=== PATIENT | female | born 1980 | race Caucasian/White ===

== ENCOUNTER 2018-03-20 01:27 | Emergency (ER) | payer BC ==
[2018-03-20] MEDS ORDERED: Alum Hydrox/Mag Hydrox/Simeth 15 ML, Metoclopramide 5 MG, Lidocaine 2% 5 ML PO ONE ×3 (01:43)
--- NOTE | 2018-03-20 02:01 | EDM.PDOC ---
ED HPI GENERAL MEDICAL PROBLEM - General Chief Complaint: Chest Pain Stated Complaint: BACK PAIN, ABDOMINAL PAIN, CHEST PAIN, CHILLS Time Seen by Provider: 03/20/18 02:16 - History of Present Illness INITIAL COMMENTS - FREE TEXT/NARRATIVE: HISTORY AND PHYSICAL: History of present illness: Patient 37-year-old female with history of gastroesophageal reflux disease presents with a concern of chest pain today describes no palpitations shortness of breath nausea vomiting fever chills Review of systems: As per history of present illness and below otherwise all systems reviewed and negative. Past medical history: As per history of present illness and as reviewed below otherwise noncontributory. Surgical history: As per history of present illness and as reviewed below otherwise noncontributory. Social history: No reported history of drug or alcohol abuse. Family history: As per history of present illness and as reviewed below otherwise noncontributory. Physical exam: HEENT: Atraumatic, normocephalic, pupils reactive, negative for conjunctival pallor or scleral icterus, mucous membranes moist, throat clear, neck supple, nontender, trachea midline. Lungs: Clear to auscultation, breath sounds equal bilaterally, chest nontender. Heart: S1S2, regular, negative for clicks, rubs, or JVD. Abdomen: Soft, nondistended, nontender. Negative for masses or hepatosplenomegaly. Negative for costovertebral tenderness. Pelvis: Stable nontender. Genitourinary: Deferred. Rectal: Deferred. Extremities: Atraumatic, negative for cords or calf pain. Neurovascular unremarkable. Neuro: Awake, alert, oriented. Cranial nerves II through XII unremarkable. Cerebellum unremarkable. Motor and sensory unremarkable throughout. Exam nonfocal. Diagnostics: CBC CMP troponin PT/INR chest x-ray EKG Therapeutics: GI cocktail Impression: #1 atypical chest pain #2 history of Gerds Definitive disposition and diagnosis as appropriate pending reevaluation and review of above. chest Pain Score (Numeric/FACES): 10 - Related Data Allergies Allergy/AdvReac Type Severity Reaction Status Date / Time No Known Allergies Allergy Verified 03/20/18 01:34 Home Meds: Home Meds . [No Known Home Meds] 03/20/18 [History] Past Medical History HEENT History: Reports: None Cardiovascular History: Reports: Arrhythmia Other Cardiovascular History: arterial defibrilation Gastrointestinal History: Reports: GERD [employer] History: Reports: , Other (See Below) Other [employer] History: breasts enhancement - Infectious Disease History Infectious Disease History: Reports: Chicken Pox - Past Surgical History HEENT Surgical History: Reports: Tonsillectomy Cardiovascular Surgical History: Reports: None Other GI Surgeries/Procedures: gastric sleeve, tummy tuck Social & Family History - Family History Family Medical History: Noncontributory - Tobacco Use Smoking Status *Q: Never Smoker Second Hand Smoke Exposure: No - Caffeine Use Caffeine Use: Reports: Coffee - Recreational Drug Use Recreational Drug Use: No ED ROS GENERAL - Review of Systems Review Of Systems: ROS reveals no pertinent complaints other than HPI. ED EXAM, GENERAL - Physical Exam Exam: See Below (Dictation) Course - Vital Signs Last Recorded V/S: Last Vital Signs Temp 36.2 C 03/20/18 01:31 Pulse 80 03/20/18 01:31 Resp 20 03/20/18 01:31 BP 100/67 03/20/18 01:31 Pulse Ox 100 03/20/18 01:31 - Orders/Labs/Meds Orders: Active Orders 24 hr Category Date Time Status Cardiac Monitoring [RC] . DIRECTED Care 03/20/18 01:41 Active EKG Documentation Completion [RC] STAT Care 03/20/18 01:41 Active Chest 1V Frontal [CR] Stat Exams 03/20/18 01:42 Ordered COMPREHENSIVE METABOLIC PN,CMP [CHEM] Stat Lab 03/20/18 01:50 Received HCG QUALITATIVE,URINE [URCHEM] Stat Lab 03/20/18 02:05 Ordered TROPONIN I [CHEM] Stat Lab 03/20/18 01:50 Received UA W/MICROSCOPIC [URIN] Stat Lab 03/20/18 02:05 Ordered Labs: Laboratory Tests 03/20/18 03/20/18 Range/Units 01:50 01:50 WBC 10.10 (4.0-11.0) K/uL RBC 4.69 (4.30-5.90) M/uL Hgb 12.5 (12.0-16.0) g/dL Hct 37.1 (36.0-46.0) % MCV 79.1 L (80.0-98.0) fL MCH 26.7 L (27.0-32.0) pg MCHC 33.7 (31.0-37.0) g/dL RDW Std Deviation 42.0 (28.0-62.0) fl RDW Coeff of Mao 15 (11.0-15.0) % Plt Count 241 (150-400) K/uL MPV 9.40 (7.40-12.00) fL Neut % (Auto) 76.9 (48.0-80.0) % Lymph % (Auto) 16.8 (16.0-40.0) % Toombs % (Auto) 5.9 (0.0-15.0) % Eos % (Auto) 0.2 (0.0-7.0) % Baso % (Auto) 0.2 (0.0-1.5) % Neut # (Auto) 7.8 H (1.4-5.7) K/uL Lymph # (Auto) 1.7 (0.6-2.4) K/uL [place]ombs # (Auto) 0.6 (0.0-0.8) K/uL Eos # (Auto) 0.0 (0.0-0.7) K/uL Baso # (Auto) 0.0 (0.0-0.1) K/uL Nucleated RBC % 0.0 /100WBC Nucleated RBCs # 0 K/uL INR 1.02 Meds: Medications Discontinued Medications Generic Name Dose Route Start Last Admin Trade Name Freq PRN Reason Stop Dose Admin Al Hydroxide/Mg Hydroxide 15 0 ml 03/20/18 01:43 03/20/18 01:57 ml/ Metoclopramide HCl 5 mg/ PO 03/20/18 01:44 20 each Lidocaine HCl 5 ml ONETIME ONE Administration Departure - Departure Time of Disposition: 02:16 Disposition: Home, Self-Care 01 Condition: Good Clinical Impression: Gastroesophageal reflux disease, Atypical chest pain - Discharge Information Referrals: PCP,None [Primary Care Provider] - Forms: ED Department Discharge Additional Instructions: The following information is given to patients seen in the emergency department who are being discharged to home. This information is to outline your options for follow-up care. We provide all patients seen in our emergency department with a follow-up referral. The need for follow-up, as well as the timing and circumstances, are variable depending upon the specifics of your emergency department visit. If you don't have a primary care physician on staff, we will provide you with a referral. We always advise you to contact your personal physician following an emergency department visit to inform them of the circumstance of the visit and for follow-up with them and/or the need for any referrals to a consulting specialist. The emergency department will also refer you to a specialist when appropriate. This referral assures that you have the opportunity for followup care with a specialist. All of these measure are taken in an effort to provide you with optimal care, which includes your followup. Under all circumstances we always encourage you to contact your private physician who remains a resource for coordinating your care. When calling for followup care, please make the office aware that this follow-up is from your recent emergency room visit. If for any reason you are refused follow-up, please contact the [facility] emergency department at and asked to speak to the emergency department charge nurse. Protonix as prescribed follow-up private medical doctor return as needed as discussed[] - My Orders Last 24 Hours: My Active Orders 03/20/18 01:41 Cardiac Monitoring [RC] . DIRECTED EKG Documentation Completion [RC] STAT 03/20/18 01:42 Chest 1V Frontal [CR] Stat 03/20/18 01:50 COMPREHENSIVE METABOLIC PN,CMP [CHEM] Stat TROPONIN I [CHEM] Stat 03/20/18 02:05 HCG QUALITATIVE,URINE [URCHEM] Stat UA W/MICROSCOPIC [URIN] Stat - Assessment/Plan Last 24 Hours: My Active Orders 03/20/18 01:41 Cardiac Monitoring [RC] . DIRECTED EKG Documentation Completion [RC] STAT 03/20/18 01:42 Chest 1V Frontal [CR] Stat 03/20/18 01:50 COMPREHENSIVE METABOLIC PN,CMP [CHEM] Stat TROPONIN I [CHEM] Stat 03/20/18 02:05 HCG QUALITATIVE,URINE [URCHEM] Stat UA W/MICROSCOPIC [URIN] Stat
[2018-03-20 02:26] LABS: CHLORIDE,CL 105 mmol/L (98-107); SODIUM,NA 139 mmol/L (136-145)
--- NOTE | 2018-03-22 15:10 | CR ---
EXAM DATE: 03/20/18 PATIENT'S AGE: 37 Patient: OLU MANNING Facility: [place], [place] Site . Site : [id number] Study: XRay Chest [id number]/14/2018 2:38:29 AM Ordering Physician: Aneta Quinn Final Report: INDICATION: shortness of breath CHEST, ONE VIEW An AP radiograph of the chest was performed. Comparison: No previous studies are currently available for comparison. The lungs appear clear and no pleural effusions are identified. The cardiomediastinal silhouette and pulmonary vasculature appear normal, as do the visualized bones. IMPRESSION: No acute intrathoracic abnormality identified. JERALD CRUZ MD [employer] Dictated by: Alphonso Cruz MD @ 03/20/2018 02:59:21 (Electronic Signature) Report Signed by Proxy. [facility]
== END 2018-03-20 03:30 | disposition home or self-care (01) ==
LOC: MW.ED 01:27
DX: K21.9 Gastro-esophageal reflux disease without esophagitis (principal); R07.89 Other chest pain
CPT/HCPCS: 36415; 71045; 80053; 81001; 81025; 84484; 85025; 85610; 93005; 99285; A9270